=== PATIENT | male | born 1970 | race Hispanic/Latino ===

== ENCOUNTER 2019-12-10 11:01 | Outpatient (CLI) | payer MEDICAID | END 2019-12-10 11:02 | disposition home or self-care (01) | LOC: WOUND 11:01 | PROVIDERS: ATTEND Surgery | DX: T81.89XA Other complications of procedures, not elsewhere classified, initial encounter (principal); S21.202A Unspecified open wound of left back wall of thorax without penetration into thoracic cavity, initial encounter; Z87.891 Personal history of nicotine dependence; I10 Essential (primary) hypertension; Y92.238 Other place in hospital as the place of occurrence of the external cause; Y83.8 Other surgical procedures as the cause of abnormal reaction of the patient, or of later complication, without mention of misadventure at the time of the procedure; X58.XXXA Exposure to other specified factors, initial encounter; Y93.89 Activity, other specified; Y92.89 Other specified places as the place of occurrence of the external cause; Y99.8 Other external cause status | CPT/HCPCS: 99204; G0463 ==

== ENCOUNTER 2019-12-21 14:43 | Outpatient (CLI) | payer MEDICAID ==
[2019-12-21] MEDS ORDERED: LIDOCAINE (4%) 40 MG/ML TOPICAL SOLN 50 ML BOTTLE TP ONE (14:57)
[2019-12-21] MEDS ORDERED: SILVER NITRATE APPLICATOR 1 EA TP ONE (16:00)
== END 2019-12-21 14:44 | disposition home or self-care (01) ==
LOC: WOUND 14:43
PROVIDERS: ATTEND Surgery
DX: T81.89XD Other complications of procedures, not elsewhere classified, subsequent encounter (principal); S21.202D Unspecified open wound of left back wall of thorax without penetration into thoracic cavity, subsequent encounter; I10 Essential (primary) hypertension; Z87.891 Personal history of nicotine dependence; Y83.8 Other surgical procedures as the cause of abnormal reaction of the patient, or of later complication, without mention of misadventure at the time of the procedure; X58.XXXD Exposure to other specified factors, subsequent encounter

== ENCOUNTER 2019-12-23 14:34 | Outpatient (CLI) | payer MEDICAID | END 2019-12-23 14:35 | disposition home or self-care (01) | LOC: WOUND 14:34 | PROVIDERS: ATTEND Surgery | DX: T81.89XD Other complications of procedures, not elsewhere classified, subsequent encounter (principal); S21.202D Unspecified open wound of left back wall of thorax without penetration into thoracic cavity, subsequent encounter; I10 Essential (primary) hypertension; Z88.1 Allergy status to other antibiotic agents; Z87.891 Personal history of nicotine dependence; Y83.8 Other surgical procedures as the cause of abnormal reaction of the patient, or of later complication, without mention of misadventure at the time of the procedure; X58.XXXD Exposure to other specified factors, subsequent encounter | CPT/HCPCS: 99213; G0463 ==

== ENCOUNTER 2019-12-28 15:01 | Outpatient (CLI) | payer MEDICAID ==
[2019-12-28] MEDS ORDERED: LIDOCAINE (4%) 40 MG/ML TOPICAL SOLN 50 ML BOTTLE TP ONE (15:14)
[2019-12-28] MEDS ORDERED: SILVER NITRATE APPLICATOR 1 EA TP ONE (15:14)
== END 2019-12-28 15:02 | disposition home or self-care (01) ==
LOC: WOUND 15:01
PROVIDERS: ATTEND Surgery
DX: T81.89XD Other complications of procedures, not elsewhere classified, subsequent encounter (principal); S21.202D Unspecified open wound of left back wall of thorax without penetration into thoracic cavity, subsequent encounter; I10 Essential (primary) hypertension; Z88.1 Allergy status to other antibiotic agents; Z87.891 Personal history of nicotine dependence; Y83.8 Other surgical procedures as the cause of abnormal reaction of the patient, or of later complication, without mention of misadventure at the time of the procedure; X58.XXXD Exposure to other specified factors, subsequent encounter

== ENCOUNTER 2020-01-04 14:58 | Outpatient (CLI) | payer MEDICAID | END 2020-01-04 14:59 | disposition home or self-care (01) | LOC: WOUND 14:58 | PROVIDERS: ATTEND Surgery | DX: T81.89XD Other complications of procedures, not elsewhere classified, subsequent encounter (principal); S21.202D Unspecified open wound of left back wall of thorax without penetration into thoracic cavity, subsequent encounter; I10 Essential (primary) hypertension; Z88.1 Allergy status to other antibiotic agents; Z87.891 Personal history of nicotine dependence; Y83.8 Other surgical procedures as the cause of abnormal reaction of the patient, or of later complication, without mention of misadventure at the time of the procedure; X58.XXXD Exposure to other specified factors, subsequent encounter | CPT/HCPCS: 99212; G0463 ==

== ENCOUNTER 2020-01-11 15:00 | Outpatient (CLI) | payer MEDICAID ==
[2020-01-11] MEDS ORDERED: SILVER NITRATE APPLICATOR 1 EA TP ONE (15:43)
== END 2020-01-11 15:01 | disposition home or self-care (01) ==
LOC: WOUND 15:00
PROVIDERS: ATTEND Surgery
DX: T81.89XD Other complications of procedures, not elsewhere classified, subsequent encounter (principal); S21.202D Unspecified open wound of left back wall of thorax without penetration into thoracic cavity, subsequent encounter; I10 Essential (primary) hypertension; Z88.1 Allergy status to other antibiotic agents; Z87.891 Personal history of nicotine dependence; Y83.8 Other surgical procedures as the cause of abnormal reaction of the patient, or of later complication, without mention of misadventure at the time of the procedure; X58.XXXD Exposure to other specified factors, subsequent encounter
CPT/HCPCS: 17250

== ENCOUNTER 2020-01-18 15:04 | Outpatient (CLI) | payer MEDICAID | END 2020-01-18 15:05 | disposition home or self-care (01) | LOC: WOUND 15:04 | PROVIDERS: ATTEND Surgery | DX: T81.89XD Other complications of procedures, not elsewhere classified, subsequent encounter (principal); S21.202D Unspecified open wound of left back wall of thorax without penetration into thoracic cavity, subsequent encounter; I10 Essential (primary) hypertension; Z88.1 Allergy status to other antibiotic agents; Z87.891 Personal history of nicotine dependence; Y83.8 Other surgical procedures as the cause of abnormal reaction of the patient, or of later complication, without mention of misadventure at the time of the procedure; X58.XXXD Exposure to other specified factors, subsequent encounter | CPT/HCPCS: 99213; G0463 ==

== ENCOUNTER 2020-01-20 15:20 | Outpatient (CLI) | payer MEDICAID | END 2020-01-20 15:21 | disposition home or self-care (01) | LOC: WOUND 15:20 | PROVIDERS: ATTEND Surgery | DX: T81.89XD Other complications of procedures, not elsewhere classified, subsequent encounter (principal); S21.202D Unspecified open wound of left back wall of thorax without penetration into thoracic cavity, subsequent encounter; I10 Essential (primary) hypertension; Z88.1 Allergy status to other antibiotic agents; Z87.891 Personal history of nicotine dependence; Y83.8 Other surgical procedures as the cause of abnormal reaction of the patient, or of later complication, without mention of misadventure at the time of the procedure; X58.XXXD Exposure to other specified factors, subsequent encounter | CPT/HCPCS: 99212; G0463 ==

== ENCOUNTER 2020-01-25 15:00 | Outpatient (CLI) | payer MEDICAID ==
[2020-01-25] MEDS ORDERED: LIDOCAINE (4%) 40 MG/ML TOPICAL SOLN 50 ML BOTTLE TP SCH (15:04)
== END 2020-01-25 15:01 | disposition home or self-care (01) ==
LOC: WOUND 15:00
PROVIDERS: ATTEND Surgery
DX: S21.202D Unspecified open wound of left back wall of thorax without penetration into thoracic cavity, subsequent encounter (principal); I10 Essential (primary) hypertension; Z88.1 Allergy status to other antibiotic agents; Z87.891 Personal history of nicotine dependence; X58.XXXD Exposure to other specified factors, subsequent encounter
CPT/HCPCS: 99213; G0463